=== PATIENT | female | born 1980 | race Caucasian/White ===

== ENCOUNTER → 2016-05-06 | Outpatient (CLI) | payer MEDICAID ==
[~2016-05-06] MED LIST: ALPR-475 PO; DIPH25CA61 PO; DOCU-30 PO; ESCI10TA10 PO; IBUP200T48 PO; LAMO200T3 PO; OMEP20CA9 PO; OXYC-223 PO; OXYC-229 PO; TRAZ50TA18 PO; ZOLP10TA PO
== END | disposition home or self-care (01) ==
LOC: RAD 17:39
PROVIDERS: ATTEND Nurse Practitioner
DX: M79.642 Pain in left hand (principal); M25.532 Pain in left wrist; G89.29 Other chronic pain

== ENCOUNTER 2016-06-25 12:47 | Emergency (ER) | payer MEDICAID ==
[~2016-06-25] VITALS: Ht 160 cm; Wt 90.4 kg
[2016-06-25 12:48] VITALS: BP 113/78
[2016-06-25 13:49] LABS: ASPARTATE AMINO TRANSFERASE 19 U/L (15-37); BLOOD UREA NITROGEN 17 mg/dL (7-18)
[2016-06-25] MEDS ORDERED: KETOROLAC 30 MG/1 ML ONE (13:59)
[2016-06-25] MEDS ORDERED: HYDROcodone/APAP 5/325 TABLET ONE (13:59)
[2016-06-25] MEDS ORDERED: HYDROcodone/APAP 5/325 TABLET PO ONE (14:00)
[2016-06-25] MEDS ORDERED: KETOROLAC 30 MG/1 ML IM ONE (14:00)
== END 2016-06-25 14:47 | disposition home or self-care (01) ==
LOC: ED 13:37
DX: M13.872 Other specified arthritis, left ankle and foot (principal); M13.871 Other specified arthritis, right ankle and foot; M13.861 Other specified arthritis, right knee; I10 Essential (primary) hypertension
CPT/HCPCS: 36415; 73564; 73610; 80053; 84550; 85025; 96372; 99285; J1885

== ENCOUNTER 2016-08-26 09:27 | Emergency (ER) | payer MEDICAID ==
[~2016-08-26] VITALS: Ht 160 cm; Wt 91.0 kg
[2016-08-26] MEDS ORDERED: MECLIZINE CHEWABLE 25 MG TAB PO ONE (10:00)
[2016-08-26] MEDS ORDERED: SODIUM CHLORIDE FLUSH 10ML SYR IVF ONE (10:00)
[2016-08-26] MEDS ORDERED: SODIUM CHLORIDE 0.9% 1,000ML IVBOLUS ONE (10:00)
[2016-08-26 10:17] LABS: BLOOD UREA NITROGEN 11 mg/dL (7-18)
[2016-08-26] MEDS ORDERED: MECLIZINE CHEWABLE 25 MG TAB ONE (10:29)
[2016-08-26] MEDS ORDERED: KETOROLAC 30 MG/1 ML ONE (11:10)
[2016-08-26] MEDS ORDERED: LORazepam 2 MG/ML, 1ML ONE (11:10)
[2016-08-26 11:18] VITALS: BP 107/73
[2016-08-26] MEDS ORDERED: KETOROLAC 30 MG/1 ML IVPush ONE (11:30)
[2016-08-26] MEDS ORDERED: LORazepam 2 MG/ML, 1ML IVPush ONE (11:30)
== END 2016-08-26 11:50 | disposition home or self-care (01) ==
LOC: ED 10:24
DX: M25.552 Pain in left hip (principal); M25.551 Pain in right hip; R42 Dizziness and giddiness; I10 Essential (primary) hypertension; Z90.710 Acquired absence of both cervix and uterus
CPT/HCPCS: 36415; 71010; 80048; 81003; 82040; 85025; 93005; 96361; 96374; 96375; 99285; J1885; J2060; J7030